=== PATIENT | male | born 1995 | race Caucasian/White ===

== ENCOUNTER 2017-04-03 22:15 | Emergency (ER) | payer OTHER | END 2017-04-04 00:54 | disposition home or self-care (01) | LOC: ER1 22:15 | DX: S30.0XXA Contusion of lower back and pelvis, initial encounter (principal); V86.59XA Driver of other special all-terrain or other off-road motor vehicle injured in nontraffic accident, initial encounter | CPT/HCPCS: 72131; 99283 ==